=== PATIENT | male | born 1965 | race Caucasian/White ===

== ENCOUNTER 2019-05-29 19:22 | Emergency (ER) | payer OTHER ==
[~2019-05-29] VITALS: Ht 180.3 cm; Wt 74.8 kg
[2019-05-29 19:39] VITALS: BP 149/90
--- NOTE | 2019-05-29 19:41 | NUR ---
VISUAL ACUITY BOTH EYE 20/20, RT EYE 20/25, LEFT EYE 20/30
--- NOTE | 2019-05-29 19:42 | NUR ---
TO BED # 07 AMBULATORY
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
--- NOTE | 2019-05-29 20:58 | NUR ---
PT L EYE IRRIGATED WITH NORMAL SALINE VIA SALVATORE LENS. PT STATED HE FELT RELIEF IMMEDIATELY, AFTER IRRIGATION STOPPED PT STATED HIS EYE WAS NOT BURNING ANYMORE
--- NOTE | 2019-05-29 21:11 | NUR ---
LT EYE IRRIGATED W/ NS BY SHAKIR KING. PER PT FEELS BETTER
[2019-05-29 21:39] VITALS: BP 163/99
--- NOTE | 2019-05-29 21:39 | NUR ---
Patient discharged with v/s stable, denies gonzales, nausea or dizziness. Written and verbal after care instructions given and explained. Patient alert, oriented and verbalized understanding of instructions. Ambulatory with steady gait. All questions addressed prior to discharge. ID band removed. Patient advised to follow up with PMD. Rx of Garamycin given. Patient educated on indication of medication including possible reaction and side effects. Opportunity to ask questions provided and answered.
== END 2019-05-29 21:39 | disposition home or self-care (01) ==
LOC: MED 19:22
DX: H10.212 Acute toxic conjunctivitis, left eye (principal)
CPT/HCPCS: 99283

== ENCOUNTER 2021-05-13 22:32 | Emergency (ER) | payer OTHER ==
[~2021-05-13] VITALS: Ht 180.3 cm; Wt 70.3 kg
[2021-05-13 22:35] VITALS: BP 156/90
--- NOTE | 2021-05-13 22:38 | NUR ---
TO LOBBY A/W BED AMBULATORY
--- NOTE | 2021-05-13 22:42 | NUR ---
SEEN AND EXAMINED BY BERTHA WITH ORDERS ANS CARRIED OUT
--- NOTE | 2021-05-14 00:58 | NUR ---
PT AMBULATED TO BED 12
[2021-05-14] MEDS ORDERED: KETOROLAC 60 MG/2 ML VIAL IM ONE (01:25)
[2021-05-14] MEDS ORDERED: ACET-8386 PO (01:41)
[2021-05-14] MEDS ORDERED: IBUP-2213 PO (01:41)
--- NOTE | 2021-05-14 01:52 | NUR ---
d/c with VSS. d/c education given.opportunity to ask questions given and answered. rx motrin and norco given.
[2021-05-14 01:53] VITALS: BP 131/68
== END 2021-05-14 01:57 | disposition home or self-care (01) ==
LOC: MED 22:32
DX: S20.211A Contusion of right front wall of thorax, initial encounter (principal); W18.39XA Other fall on same level, initial encounter; Y93.89 Activity, other specified; Y92.89 Other specified places as the place of occurrence of the external cause; Y99.8 Other external cause status
CPT/HCPCS: 71101; 99283; J1885

== ENCOUNTER 2023-01-21 08:01 | Emergency (ER) | payer OTHER ==
[~2023-01-21] VITALS: Ht 180.3 cm; Wt 79.4 kg
[~2023-01-21 08:01] MED LIST: ACET-8905 PO; IBUP-2213 PO
--- NOTE | 2023-01-21 08:06 | NUR ---
CALLED TO TRIAGE IN RESTROOM
[2023-01-21 08:09] VITALS: BP 173/96
--- NOTE | 2023-01-21 08:58 | NUR ---
CALLED TO BED BY RN, NO ANSWER
--- NOTE | 2023-01-21 09:08 | NUR ---
Note yara in EDM - 01/21/23 at 0909 by [id number] 57/M WALKED IN C/O ABD PAIN LAST NIGHT. PT REPORTS NAUSEA, DENIES DIARRHEA. PT REPORTS NOT ABLE TO HAVE BM X 3 DAYS. NKA PMH: VLADIES
--- NOTE | 2023-01-21 09:22 | NUR ---
ATTEMPTED TO BRING PT BACK X2, NO ANSWER IN LOBBY/OUTSIDE
--- NOTE | 2023-01-21 09:22 | NUR ---
PATIENT LEFT WITHOUT BEING SEEN BY DR. SERRA. NO FURTHER CARE PROVIDED FOR PATIENT.
== END 2023-01-21 08:58 | disposition left against medical advice (07) ==
LOC: MED 08:01
DX: R10.30 Lower abdominal pain, unspecified (principal); Z53.21 Procedure and treatment not carried out due to patient leaving prior to being seen by health care provider
CPT/HCPCS: 99281

== ENCOUNTER 2023-08-05 14:15 | Emergency (ER) | payer OTHER ==
[~2023-08-05] VITALS: Ht 167.6 cm; Wt 72.6 kg
[2023-08-05 14:48] VITALS: BP 136/93; PULSE 89; RESP 18; TEMP 97; O2SAT 98
[2023-08-05] MEDS ORDERED: IBUPROFEN 600 MG TAB PO ONE (15:10)
[2023-08-05] MEDS ORDERED: BACI-418 TP (17:14)
[2023-08-05] MEDS ORDERED: IBUP-2213 PO (17:14)
[2023-08-05] MEDS ORDERED: CEPH-588 PO (17:14)
[2023-08-05] MEDS ORDERED: BACITRACIN OINT 500 UNITS/GM PKT TP ONE ×2 (17:19→17:25)
[2023-08-05 17:29] VITALS: BP 122/87; PULSE 89; RESP 18; TEMP 97; O2SAT 98
== END 2023-08-05 17:30 | disposition home or self-care (01) ==
LOC: MED 14:15
DX: S61.213A Laceration without foreign body of left middle finger without damage to nail, initial encounter (principal); W23.0XXA Caught, crushed, jammed, or pinched between moving objects, initial encounter; Y93.89 Activity, other specified; Y92.89 Other specified places as the place of occurrence of the external cause; Y99.8 Other external cause status
CPT/HCPCS: 12001; 73140; 90471; 90715; 99283